=== PATIENT | female | born 1965 | race Asian ===

== ENCOUNTER 2016-05-09 18:01 | Emergency (ER) | payer OTHER, BC ==
[~2016-05-09] VITALS: Ht 162.6 cm; Wt 72.6 kg
[~2016-05-09 18:01] MED LIST: ETOD300C33 PO; METOPROLOL50 MG PO; NORVASC10 MG PO
[2016-05-09 20:20] VITALS: BP 165/94; TEMP 98.7
[2016-05-09 20:22] LABS: PLATELET COUNT 244 K/uL (152-353)
[2016-05-09 20:35] LABS: POTASSIUM 3.4 mmol/L (3.6-5.2); SODIUM 138 mmol/L (136-145)
== END 2016-05-09 20:28 | disposition home or self-care (01) ==
LOC: ED 18:01
DX: M54.5 Low back pain (principal)
CPT/HCPCS: 80053; 81000; 85027; 96372; 99283; J1885

== ENCOUNTER 2016-07-28 15:04 | Emergency (ER) | payer BC, OTHER ==
[~2016-07-28] VITALS: Ht 162.6 cm; Wt 75.8 kg
[2016-07-28 15:15] VITALS: TEMP 98.7
[2016-07-28 16:43] VITALS: BP 186/116
== END 2016-07-28 16:43 | disposition home or self-care (01) ==
LOC: ED 15:04
DX: M54.5 Low back pain (principal); M47.896 Other spondylosis, lumbar region; S80.02XA Contusion of left knee, initial encounter; V43.52XA Car driver injured in collision with other type car in traffic accident, initial encounter
CPT/HCPCS: 99283

== ENCOUNTER 2016-09-09 16:06 | Outpatient (CLI) | payer BC ==
[2016-09-09 16:52] LABS: PLATELET COUNT 263 K/uL (152-353)
[2016-09-09 17:22] LABS: POTASSIUM 3.1 mmol/L (3.6-5.2)
== END 2016-09-09 17:10 | disposition home or self-care (01) ==
LOC: LABW 16:06
PROVIDERS: Internal Medicine Cardiovascular Disease
DX: E78.4 Other hyperlipidemia (principal); I10 Essential (primary) hypertension
CPT/HCPCS: 36415; 80053; 80061; 82248; 85027

== ENCOUNTER 2017-09-08 18:30 | Emergency (ER) | payer BC ==
[~2017-09-08] VITALS: Ht 160 cm; Wt 77.1 kg
[2017-09-08 19:58] LABS: PLATELET COUNT 251 K/uL (152-353)
[2017-09-08 20:13] LABS: POTASSIUM 3.1 mmol/L (3.6-5.2)
[2017-09-08 21:53] VITALS: BP 132/90; TEMP 99
== END 2017-09-08 21:58 | disposition home or self-care (01) ==
LOC: EDBD 18:30 → ED 18:30
PROVIDERS: Internal Medicine
DX: B34.9 Viral infection, unspecified (principal); I10 Essential (primary) hypertension; E87.6 Hypokalemia
CPT/HCPCS: 36415; 80053; 81000; 85027; 87086; 87088; 87804; 99283

== ENCOUNTER 2018-03-01 09:39 | Outpatient (CLI) | payer BC | END 2018-03-01 22:51 | disposition home or self-care (01) | LOC: MAMMO 09:39 → EDBD 09:39 → MAMMO 22:51 | DX: Z12.31 Encounter for screening mammogram for malignant neoplasm of breast (principal) ==

== ENCOUNTER 2018-03-02 08:52 | Outpatient (CLI) | payer BC | END 2018-03-02 21:29 | disposition home or self-care (01) | LOC: RESP 08:52 → EDBD 09:00 → RESP 21:29 | DX: G56.03 Carpal tunnel syndrome, bilateral upper limbs (principal); G56.23 Lesion of ulnar nerve, bilateral upper limbs | CPT/HCPCS: 95887; 95911 ==

== ENCOUNTER 2018-08-18 10:53 | Day surgery (SDC) | payer BC | END 2018-08-18 17:00 | disposition home or self-care (01) | LOC: EDBD 10:53 → OR 10:53 | PROC: 0DBL8ZZ Excision of Transverse Colon, Via Natural or Artificial Opening Endoscopic (ICD-10-PCS; principal; 2018-08-18) | DX: D12.3 Benign neoplasm of transverse colon (principal); K64.8 Other hemorrhoids; Z12.11 Encounter for screening for malignant neoplasm of colon | CPT/HCPCS: J2001; J2250; J2405; J2704 ==

== ENCOUNTER 2018-08-31 13:12 | Outpatient (CLI) | payer BC | END 2018-08-31 21:19 | disposition home or self-care (01) | LOC: MAMMO 13:12 | DX: R92.8 Other abnormal and inconclusive findings on diagnostic imaging of breast (principal) ==

== ENCOUNTER 2018-09-08 11:55 | Outpatient (CLI) | payer BC ==
[~2018-09-08] VITALS: Ht 30.5 cm; Wt 0.5 kg
== END 2018-09-08 20:06 | disposition home or self-care (01) ==
LOC: US 11:55
DX: R92.8 Other abnormal and inconclusive findings on diagnostic imaging of breast (principal)

== ENCOUNTER 2019-11-14 10:03 | Inpatient (IN) | payer OTHER ==
[~2019-11-14] VITALS: Ht 165.1 cm; Wt 78.6 kg
[2019-11-14 12:28] VITALS: BP 95/51; TEMP 102.4; Ht 165.1 cm; Wt 78.6 kg
[2019-11-14 12:38] LABS: PLATELET COUNT 221 K/uL (152-353)
[2019-11-14 12:53] LABS: POTASSIUM 2.8 mmol/L (3.6-5.2); SODIUM 138 mmol/L (136-145)
[2019-11-14 16:00] VITALS: BP 102/54; TEMP 98.7
[2019-11-14 19:59] VITALS: BP 102/53; TEMP 98.5
[2019-11-14 23:47] VITALS: BP 96/57; TEMP 98.5
[2019-11-15 03:43] VITALS: BP 110/61; TEMP 99.5
[2019-11-15 08:00] VITALS: BP 95/38; TEMP 98.3
[2019-11-15 11:30] LABS: POTASSIUM 2.8 mmol/L (3.6-5.2)
[2019-11-15 11:40] LABS: PLATELET COUNT 262 K/uL (152-353)
[2019-11-15 12:00] VITALS: BP 100/58; TEMP 99.4
[2019-11-15 16:00] VITALS: BP 107/63; TEMP 97.8
[2019-11-15 20:00] VITALS: BP 127/74; TEMP 97.9
[2019-11-16 00:15] VITALS: BP 115/56; TEMP 98.8
[2019-11-16 03:47] VITALS: BP 110/58; TEMP 98.4
[2019-11-16 06:37] LABS: PLATELET COUNT 326 K/uL (152-353)
[2019-11-16 07:50] VITALS: BP 122/76; TEMP 98.9
[2019-11-16 12:00] VITALS: BP 138/66; TEMP 98.6
[2019-11-16 16:00] VITALS: BP 122/75; TEMP 97.7
[2019-11-16 20:00] VITALS: BP 108/58; TEMP 98.3
[2019-11-17] VITALS: BP 124/63; TEMP 98.6
[2019-11-17 04:00] VITALS: BP 128/65; TEMP 98.6
[2019-11-17 05:20] LABS: PLATELET COUNT 349 K/uL (152-353)
[2019-11-17 05:38] LABS: POTASSIUM 4.4 mmol/L (3.6-5.2)
[2019-11-17 08:00] VITALS: BP 133/71; TEMP 98.4
[2019-11-17 12:00] VITALS: BP 137/75; TEMP 98.2
[2019-11-17 16:00] VITALS: BP 152/63; TEMP 98.8
[2019-11-17 20:00] VITALS: BP 120/60; TEMP 99.2
[2019-11-18 00:01] VITALS: BP 147/92; TEMP 99.6
[2019-11-18 04:28] VITALS: BP 176/92; TEMP 98.8
[2019-11-18 05:21] LABS: PLATELET COUNT 314 K/uL (152-353)
[2019-11-18 08:00] VITALS: BP 155/95; TEMP 98.4
[2019-11-18 12:00] VITALS: BP 170/87; TEMP 98.2
[2019-11-18] MEDS ORDERED: NIFE60TA5 PO (15:18)
[2019-11-18] MEDS ORDERED: OMEPRAZOLE DR40 MG PO (15:19)
[2019-11-18] MEDS ORDERED: CELEXA20 MG PO (15:20)
[2019-11-18 16:00] VITALS: BP 180/86; TEMP 98
[2019-11-18 20:00] VITALS: BP 136/73; TEMP 98.1
[2019-11-19 00:07] VITALS: BP 140/88; TEMP 98.7
[2019-11-19 04:00] VITALS: BP 148/83; TEMP 98.9
[2019-11-19 05:58] LABS: PLATELET COUNT 378 K/uL (152-353)
[2019-11-19 06:11] LABS: POTASSIUM 3.9 mmol/L (3.6-5.2)
[2019-11-19 08:00] VITALS: BP 116/63; TEMP 98.6
[2019-11-19 12:00] VITALS: BP 144/78; TEMP 98.4
[2019-11-19 16:00] VITALS: BP 119/67; TEMP 98.2
[2019-11-19 20:18] VITALS: BP 122/68; TEMP 98.5
[2019-11-20] VITALS (7 sets, daily range): BP systolic 115–130; BP diastolic 58–81; TEMP 98.2–98.8
[2019-11-20 09:40] LABS: POTASSIUM 3.5 mmol/L (3.6-5.2)
[2019-11-20 09:48] LABS: PLATELET COUNT 429 K/uL (152-353)
[2019-11-21 04:17] VITALS: BP 112/65; TEMP 97.7
[2019-11-21 06:05] LABS: PLATELET COUNT 476 K/uL (152-353)
[2019-11-21 06:25] LABS: POTASSIUM 3.5 mmol/L (3.6-5.2)
[2019-11-21 08:04] VITALS: BP 107/60; TEMP 98.1
[2019-11-21 12:01] VITALS: BP 116/70; TEMP 97.6
[2019-11-21 16:00] VITALS: BP 124/71; TEMP 97.8
== END 2019-11-21 18:10 | disposition home or self-care (01) | DRG 177 ==
LOC: MED/SURG 10:03
PROVIDERS: ADMIT Family Medicine
DX: U07.1 COVID-19 (principal); J18.8 Other pneumonia, unspecified organism; N17.8 Other acute kidney failure; N30.01 Acute cystitis with hematuria; E46 Unspecified protein-calorie malnutrition; E83.42 Hypomagnesemia; E87.6 Hypokalemia; D64.89 Other specified anemias; E83.51 Hypocalcemia; I10 Essential (primary) hypertension; R09.02 Hypoxemia; K21.9 Gastro-esophageal reflux disease without esophagitis; F32.89 Other specified depressive episodes; D72.828 Other elevated white blood cell count; B96.20 Unspecified Escherichia coli [E. coli] as the cause of diseases classified elsewhere
CPT/HCPCS: 36415; 36600; 80053; 81000; 82550; 82728; 82805; 83605; 83735; 84100; 84484; 85027; 85379; 86140; 87040; 87077; 87086; 87088; 87186; 87635; 94667; 94668; 94760; G2023; J0456; J0696; J1650; J2185; J2405; J3475; J3480; U0003

== ENCOUNTER 2019-11-28 10:05 | Outpatient (CLI) | payer OTHER ==
[~2019-11-28 10:05] MED LIST changes: +CELEXA20 MG PO; +NIFE60TA5 PO; +OMEPRAZOLE DR40 MG PO
== END 2019-11-28 19:15 | disposition home or self-care (01) ==
LOC: RAD 10:05
DX: U07.1 COVID-19 (principal)

== ENCOUNTER 2020-07-18 15:15 | Outpatient (CLI) | payer OTHER | END 2020-07-18 23:02 | disposition home or self-care (01) | LOC: INF 15:15 | PROVIDERS: ATTEND Internal Medicine | DX: Z23 Encounter for immunization (principal) | CPT/HCPCS: 96372 ==

== ENCOUNTER 2020-08-09 15:19 | Outpatient (CLI) | payer OTHER | END 2020-08-09 19:58 | disposition home or self-care (01) | LOC: INF 15:19 | PROVIDERS: ATTEND Internal Medicine | DX: Z23 Encounter for immunization (principal) | CPT/HCPCS: 96372 ==

== ENCOUNTER 2020-08-30 13:54 | Outpatient (CLI) | payer OTHER | END 2020-08-30 23:20 | disposition home or self-care (01) | LOC: MRI 13:54 | PROVIDERS: ATTEND Physical Medicine & Rehabilitation | DX: M54.16 Radiculopathy, lumbar region (principal) ==

== ENCOUNTER 2021-06-13 07:59 | Outpatient (CLI) | payer OTHER ==
[~2021-06-13] VITALS: Ht 167.6 cm; Wt 77.6 kg
== END 2021-06-13 19:11 | disposition home or self-care (01) ==
LOC: NM 07:59
PROVIDERS: ATTEND Nurse Practitioner Primary Care
DX: R07.9 Chest pain, unspecified (principal)
CPT/HCPCS: A9500; J2785

== ENCOUNTER 2022-04-15 13:32 | Outpatient (CLI) | payer OTHER | END 2022-04-15 22:20 | disposition home or self-care (01) | LOC: MAMMO 13:32 | PROVIDERS: ATTEND Nurse Practitioner Family | DX: Z12.31 Encounter for screening mammogram for malignant neoplasm of breast (principal) ==

== ENCOUNTER 2022-08-26 18:26 | Emergency (ER) | payer OTHER ==
[~2022-08-26] VITALS: Ht 167.6 cm; Wt 72.6 kg
[2022-08-26 18:36] VITALS: TEMP 98.1
[2022-08-26 19:08] LABS: PLATELET COUNT 247 K/uL (152-353)
[2022-08-26 19:20] LABS: POTASSIUM 2.6 mmol/L (3.6-5.2)
[2022-08-26 20:30] VITALS: BP 117/66
== END 2022-08-26 20:30 | disposition home or self-care (01) ==
LOC: ED 18:26
PROVIDERS: Emergency Medicine
DX: R00.2 Palpitations (principal); E87.6 Hypokalemia; I10 Essential (primary) hypertension; R06.02 Shortness of breath
CPT/HCPCS: 36415; 80053; 83735; 83880; 84484; 85027; 93005; 96372; 99283; J0360

== ENCOUNTER 2022-12-29 10:31 | Outpatient (CLI) | payer OTHER | END 2022-12-29 19:07 | disposition home or self-care (01) | LOC: RAD 10:31 | PROVIDERS: ATTEND Internal Medicine | DX: Z02.71 Encounter for disability determination (principal) ==